=== PATIENT | female | born 1935 | race Caucasian/White ===

== ENCOUNTER 2020-08-01 23:53 | Emergency (ER) | payer MEDICARE, OTHER ==
[~2020-08-01] VITALS: Ht 157.5 cm; Wt 60.8 kg
--- NOTE | 2020-08-02 00:12 | NUR ---
PATIENT CAME TO ER BED 9 C/O LEFT LEG CRAMPING SINCE TODAY THAT HAS BEEN WORSENING. PATIENT CURRENTLY IS NOT IN ANY PAIN, NO CRAMPING. PER RA REPORT, PATIENT RECEIVED BANANAS AND PICKLED JUICE PRIOR TO ARRIVAL. PATIENT IS ON 2L OF N/C, DOES NOT KNOW WHY SHE ON 2L OF N/C. PAITENT IS AAOX4. C/O SOB. ON 2L OF NASAL CANNULA AT 98%. CONNECTED TO MONITOR.
[2020-08-02] MEDS ORDERED: DIAZEPAM 5 MG TABLET PO ONE (00:30)
[2020-08-02] MEDS ORDERED: IV NS 0.9% 500 ML BAG IV ONE ×2 (00:30→01:30)
[2020-08-02 00:50] LABS: BASOPHILS % (AUTO) 0.6 % (0.0-2.0); EOSINOPHILS % (AUTO) 4.8 % (0.0-6.0); HEMATOCRIT 32 % (33-45); HEMOGLOBIN 10.4 g/dL (11.5-14.8); LYMPHOCYTES # (AUTO) 0.6 /CMM (0.8-4.8); LYMPHOCYTES % (AUTO) 9.8 % (20.0-44.0); MEAN CORPUSCULAR HGB CONC 33 g/dl (31.0-36.0); MEAN CORPUSCULAR VOLUME 93 fL (82-100); MONOCYTES # (AUTO) 0.4 /CMM (0.1-1.30); MONOCYTES % (AUTO) 6.8 % (2.0-12.0); NEUTROPHILS # (AUTO) 4.8 /CMM (1.8-8.9); PLATELET COUNT (AUTO) 113 /CMM (150-450); RED BLOOD CELL COUNT(AUTO) 3.46 MIL/uL (4.0-5.2); WHITE BLOOD COUNT (AUTO) 6.1 K/uL (4.3-11.0)
[2020-08-02] MEDS ORDERED: DIAZEPAM 5 MG TABLET ONE (00:50)
[2020-08-02 00:58] LABS: CALCIUM, SERUM 8.6 mg/dL (8.5-10.1); CREATININE 0.8 mg/dL (0.6-1.3)
[2020-08-02 01:04] LABS: ALBUMIN 3.6 g/dL (3.4-5.0); BILIRUBIN,DIRECT 0.3 mg/dL (0.0-0.2); BILIRUBIN,TOTAL 0.9 mg/dL (0.2-1.0); TOTAL PROTEIN, SERUM 7.5 g/dL (6.4-8.2)
--- NOTE | 2020-08-02 01:55 | NUR ---
CALLED [facility] FOR TRANSPORTATION, NO AVAILABLE AMBULANCES AT THIS TIME
--- NOTE | 2020-08-02 01:57 | NUR ---
[facility] ETA 0700
[2020-08-02 02:39] LABS: APPEARANCE,URINE CLEAR (CLEAR); BILIRUBIN,URINE NEGATIVE (NEGATIVE); BLOOD, URINE TRACE-INTA Ery/uL (NEGATIVE); COLOR,URINE YELLOW (YELLOW); KETONES,URINE NEGATIVE (NEGATIVE); LEUKOCYTE ESTERASE ,URINE NEGATIVE (NEGATIVE); NITRITE, URINE NEGATIVE (NEGATIVE); PROTEIN,URINE 30 mg/dl (NEGATIVE); UGLUCOSE NEGATIVE (NEGATIVE); UROBILINOGEN,URINE 0.2 EU/dL (0.2)
[2020-08-02 04:00] LABS: BACTERIA,URINE Few /HPF (None Seen); RBC,URINE 0-2 /HPF (0-2); SQUAMOUS EPITHELIAL CELL,UR Few /HPF (None Seen); WBC,URINE 0-2 /HPF (0-3)
[2020-08-02] MEDS ORDERED: DOCUSATE SODIUM LIQ 100 MG/10 ML UDC ONE (07:38)
--- NOTE | 2020-08-02 07:50 | NUR ---
IV removed. Catheter intact and site benign. Pressure and 4x4 applied to site. No bleeding noted.
--- NOTE | 2020-08-02 07:53 | NUR ---
Patient discharged to home in stable condition. Written and verbal after care instructions given. Patient verbalizes understanding of instruction.
[2020-08-02 07:55] VITALS: BP 143/82
[2020-08-02] MEDS ORDERED: DOCUSATE SODIUM LIQ 100 MG/10 ML UDC NG ONE (08:00)
== END 2020-08-02 07:55 | disposition home or self-care (01) ==
LOC: ER 23:58
DX: R25.2 Cramp and spasm (principal); E86.0 Dehydration; I10 Essential (primary) hypertension; Z98.890 Other specified postprocedural states; Z85.038 Personal history of other malignant neoplasm of large intestine
CPT/HCPCS: 36415; 80048; 80076; 81001; 83735; 85025; 93005; 99284; J7030; J7040 ×2; 81000-TC

== ENCOUNTER 2020-11-16 17:14 | Inpatient (IN) | payer MEDICARE, OTHER ==
[~2020-11-16] VITALS: Ht 157.5 cm; Wt 60.8 kg
[2020-11-16 17:43] LABS: BASOPHILS % (AUTO) 0.4 % (0.0-2.0); EOSINOPHILS % (AUTO) 2.3 % (0.0-6.0); HEMATOCRIT 34 % (33-45); HEMOGLOBIN 10.5 g/dL (11.5-14.8); LYMPHOCYTES # (AUTO) 0.4 /CMM (0.8-4.8); MEAN CORPUSCULAR HGB CONC 31 g/dl (31.0-36.0); MEAN CORPUSCULAR VOLUME 98 fL (82-100); MONOCYTES # (AUTO) 0.3 /CMM (0.1-1.30); MONOCYTES % (AUTO) 7.5 % (2.0-12.0); NEUTROPHILS # (AUTO) 3.2 /CMM (1.8-8.9); NEUTROPHILS % (AUTO) 79.8 % (43.0-81.0); PLATELET COUNT (AUTO) 92 /CMM (150-450); RED BLOOD CELL COUNT(AUTO) 3.44 MIL/uL (4.0-5.2)
--- NOTE | 2020-11-16 17:47 | NUR ---
Patient bibra from home worsening shortness of breath x 2 days. On 15lpm via non rebreather mask. Connected to the monitor and pulse ox. kept comfortable, will continue to monitor accordingly.
--- NOTE | 2020-11-16 17:48 | NUR ---
IV access initiated and blood drawned and sent to lab. Covid 19 swab collected.
[2020-11-16] MEDS ORDERED: HYDR8TAB18 PO (17:56)
[2020-11-16] MEDS ORDERED: ONDA4TAB11 PO (17:56)
[2020-11-16] MEDS ORDERED: SPIR50TA5 PO (17:56)
[2020-11-16] MEDS ORDERED: NALO12.52 PO (17:56)
--- NOTE | 2020-11-16 18:03 | NUR ---
MOVE SHEET SUBMITTED
--- NOTE | 2020-11-16 18:18 | NUR ---
CALLED [facility].
[2020-11-16] MEDS ORDERED: LEVOFLOXACIN 750 MG /D5W 150ML 150 ML IV ONE ×2 (18:30→18:37)
[2020-11-16 18:40] LABS: CALCIUM, SERUM 8.3 mg/dL (8.5-10.1); CREATININE 0.8 mg/dL (0.6-1.3)
--- NOTE | 2020-11-16 18:48 | NUR ---
LAB CALLED PT COVID-19 NEGATIVE (-)
[2020-11-16 18:49] LABS: D-DIMER 9.07 mg/L(FEU (0.17-0.50)
[2020-11-16 18:53] LABS: ALBUMIN 3.1 g/dL (3.4-5.0); BILIRUBIN,DIRECT 0.4 mg/dL (0.0-0.2); BILIRUBIN,TOTAL 1.1 mg/dL (0.2-1.0); TOTAL PROTEIN, SERUM 7.2 g/dL (6.4-8.2)
[2020-11-16 19:01] LABS: BILIRUBIN,URINE SMALL (NEGATIVE); COLOR,URINE YELLOW (YELLOW); LEUKOCYTE ESTERASE ,URINE Negative (NEGATIVE); NITRITE, URINE Negative (NEGATIVE); PH,URINE 5.5 (5.0-8.0); PROTEIN,URINE 100 mg/dl (NEGATIVE); UGLUCOSE Negative (NEGATIVE)
[2020-11-16 19:25] LABS: BACTERIA,URINE Few /HPF (None Seen); SQUAMOUS EPITHELIAL CELL,UR Few /HPF (None Seen); WBC,URINE 0-2 /HPF (0-3)
[2020-11-16 19:38] LABS: LYMPHOCYTES % (MANUAL) 17 % (16-48); MONOCYTES % (MANUAL) 4 % (0-11.0); NEUTROPHILS % (MANUAL) 78 (42-76)
--- NOTE | 2020-11-16 20:02 | NUR ---
PT ASSIGNED TO
--- NOTE | 2020-11-16 20:49 | NUR ---
TELE 308-2
--- NOTE | 2020-11-16 21:08 | NUR ---
REPORT GIVEN TO HORTENSIA LINN FOR KRISTA
[2020-11-16] MEDS ORDERED: MAGNESIUM HYDROXIDE 30 ML UDC PO PRN (21:30)
[2020-11-16] MEDS ORDERED: ONDANSETRON HCL/PF 4 MG/2 ML VIAL IVP PRN (21:30)
[2020-11-16] MEDS ORDERED: HEPARIN SODIUM, PORCINE 5000 UNITS/1 ML VIAL SQ ONE (21:30)
[2020-11-16] MEDS ORDERED: Z GUARD REMEDY 2 OZ OINT TP PRN (21:30)
[2020-11-16] MEDS ORDERED: ACETAMINOPHEN 325 MG TABLET PO PRN (21:30)
[2020-11-16] MEDS ORDERED: ZOLPIDEM TARTRATE 5 MG TABLET PO PRN (21:30)
[2020-11-16 22:00] VITALS: BP 173/77
--- NOTE | 2020-11-16 22:35 | NUR ---
RN NOTES PT ARRIVED VIA GURNEY ALERT AND ORIENTED X4 NO SIGNS OF PAIN OR DISCOMFORT NOTED. NO RESPIRATORY DISTRESS. IV ACCESS ON THE RIGHT FOR ARM PATENT AND INTACT.ALL NURSING NEEDS MET. SAFETY PRECAUTIONS FOLLOWED. CALL LIGHT WITHIN REACH. WILL CONTINUE TO MONITOR.
--- NOTE | 2020-11-16 23:12 | NUR ---
RN NOTES PER MD Marilou padgett to give heparin. will continue to monitor.
[2020-11-17] VITALS: BP 165/76
[2020-11-17] MEDS ORDERED: FUROSEMIDE 40 MG/4 ML VIAL IV SCH
--- NOTE | 2020-11-17 06:56 | NUR ---
RN NOTES ALERT AND ORIENTED X4 NO SIGNS OF PAIN OR DISCOMFORT NOTED. NO RESPIRATORY DISTRESS. IV ACCESS ON THE RIGHT FOR ARM PATENT AND INTACT.ALL NURSING NEEDS MET. ALL DUE MEDS GIVEN AND TOLERATED WELL. PT ON A NRB MASK AT 15 L O2 SATURATION 95% TOLERATING WELL.SAFETY PRECAUTIONS FOLLOWED. CALL LIGHT WITHIN REACH. WILL ENDORSE CARE TO DAY SHIFT NURSE.
--- NOTE | 2020-11-17 07:30 | NUR ---
PATIENT RECEIVED RESTING COMFORTABLY IN BED. NO S/S OR C/O PAIN OR DISTRESS NOTED. SIDE RAILS UP X2, CALL LIGHT LEFT WITHIN REACH,. WILL CONTINUE PLAN OF CARE.
[2020-11-17 07:37] LABS: BASOPHILS % (AUTO) 0.7 % (0.0-2.0); EOSINOPHILS % (AUTO) 4.3 % (0.0-6.0); HEMATOCRIT 30 % (33-45); HEMOGLOBIN 9.8 g/dL (11.5-14.8); LYMPHOCYTES # (AUTO) 0.4 /CMM (0.8-4.8); LYMPHOCYTES % (AUTO) 10.1 % (20.0-44.0); MEAN CORPUSCULAR HGB CONC 32 g/dl (31.0-36.0); MEAN CORPUSCULAR VOLUME 95 fL (82-100); MONOCYTES # (AUTO) 0.4 /CMM (0.1-1.30); MONOCYTES % (AUTO) 10.7 % (2.0-12.0); NEUTROPHILS # (AUTO) 2.7 /CMM (1.8-8.9); NEUTROPHILS % (AUTO) 74.2 % (43.0-81.0); PLATELET COUNT (AUTO) 82 /CMM (150-450); RED BLOOD CELL COUNT(AUTO) 3.18 MIL/uL (4.0-5.2); WHITE BLOOD COUNT (AUTO) 3.6 K/uL (4.3-11.0)
[2020-11-17 08:00] VITALS: BP 128/71
[2020-11-17 08:51] LABS: CALCIUM, SERUM 8.2 mg/dL (8.5-10.1); CREATININE 0.7 mg/dL (0.6-1.3); MAGNESIUM 2.2 mg/dL (1.8-2.4); PHOSPHORUS 3.2 mg/dL (2.5-4.9); POTASSIUM 5.3 mmol/L (3.5-5.1)
[2020-11-17] MEDS ORDERED: IOHEXOL-350 100 ML VIAL IV ONE (09:17)
[2020-11-17] MEDS ORDERED: IPRATROPIUM NEB FS 0.5 MG/2.5 ML AMPUL.NEB NEB SCH (11:30)
[2020-11-17] MEDS ORDERED: ALBUTEROL HALF STRENGTH 1.25 MG/3 ML VIAL.NEB NEB SCH (11:30)
[2020-11-17 13:12] LABS: BAND % (MANUAL) 1 % (0.0-5.0); EOSINOPHILS % (MANUAL) 3 % (0-4); LYMPHOCYTES % (MANUAL) 12 % (16-48); MONOCYTES % (MANUAL) 8 % (0-11.0); NEUTROPHILS % (MANUAL) 76 (42-76)
[2020-11-17] MEDS: FUROSEMIDE 40 MG/4 ML VIAL IV SCH ×2 (13:26→17:11)
[2020-11-17] MEDS: HYDROMORPHONE HCL 2 MG TABLET PO PRN ×2 (13:34→23:27)
[2020-11-17 16:00] VITALS: BP 139/87
[2020-11-17] MEDS: methylPREDNISolone SOD SUCC 125 MG/2ML VIAL IV SCH (17:11)
--- NOTE | 2020-11-17 19:02 | NUR ---
CHANGE OF SHIFT REPORT PT RESTING COMFORTABLY IN BED. NO S/S OR C/O PAIN OR DISTRESS NOTED. SIDE RAILS UP X2, CALL LIGHT LEFT WITHIN REACH. PT KEPT CLEAN, DRY, AND COMFORTABLE. NO SIGNIFICANT CHANGES SINCE PREVIOUS SHIFT. WILL GIVE REPORT TO NOLAN BAZAN.
--- NOTE | 2020-11-17 19:30 | NUR ---
CASE FINISHER OPENING NOTE RECEIVED PATIENT IN BED. A/OX3. HARD OF HEARING. ON OXYGEN 15L/MIN VIA NONREBREATHER. RESPIRATIONS ARE EVEN AND UNLABORED. NO S/S SOB AT REST. NO S/S PAIN AT THIS TIME. EXTERNAL TELE MONITOR READ CONTROLLED AFIB HR 63. IN NO APPARENT DISTRESS. IV ACCESS IN RFA #20 PATENT AND SALINE LOCKED. BED IS LOW AND LOCKED, HOB ELEVATED IN HIGH FOWLERS, SIDE RIALS UP X3. CALL LIGHT WITHIN REACH. WILL CONTINUE TO MONITOR THROUGHOUT SHIFT.
[2020-11-17 20:00] VITALS: BP 150/78
[2020-11-17] MEDS: ENOXAPARIN SODIUM 60 MG/0.6 ML DISP.SYRIN SQ SCH (23:01)
--- NOTE | 2020-11-17 23:02 | NUR ---
SEWAGE RETICULATION DRAFTING OFFICER NOTE CALLED RAMP LEAD MD DR. MOBLEY. INFORMED PATIENT HAS ASCHEDULED LOVENOX 60MG BUT PATIENT PLT IS 82 AND DROPPED FROM YESTERDAY, PLT 92. PATIENT POSITIVE DVT IN LEFT FEMORAL VEIN. MD TELEPHONE ORDER OK TO GIVE LOVENOX 60MG.
--- NOTE | 2020-11-17 23:15 | NUR ---
ACCOUNTS PAYABLE SPECIALIST NOTE PROVIDED PATIENT EDUCATION ABOUT DVT AND LOVENOX MEDICATION. INFORMED PATIENT NOT TO GET UP BECAUSE IT CAN CAUSE STROKE. INFORMED ON USE OF CALL LIGHT. CALL LIGHT WITHIN REACH.
--- NOTE | 2020-11-17 23:27 | NUR ---
CONTINUOUS IMPROVEMENT BLACK BELT NOTE ADMINISTERED PRN DILAUDID 8MG FOR 8/10 PAIN IN ABDOMEN.
[2020-11-18] VITALS: BP 131/95
[2020-11-18 00:14] VITALS: BP 131/95
[2020-11-18 04:00] VITALS: BP 136/65
--- NOTE | 2020-11-18 07:30 | NUR ---
TELE/RN OPENING NOTE Received patient resting in bed, A&O x 3, [place], easily arousable to tactile and verbal stimulation. No complaints of pain/discomfort at this time. Breathing even and non-labored on 8L face mask, no SOB noted. No cardiac distress noted On tele monitor, reading Afib 68. IV access noted on R FA #18g, patent and intact, and flushing well. Bed locked to its lowest position, call light in hand. Will continue with current medical management.
[2020-11-18 08:00] VITALS: BP 130/60
[2020-11-18 08:02] LABS: BASOPHILS % (AUTO) 0.1 % (0.0-2.0); HEMATOCRIT 30 % (33-45); HEMOGLOBIN 9.9 g/dL (11.5-14.8); LYMPHOCYTES # (AUTO) 0.2 /CMM (0.8-4.8); LYMPHOCYTES % (AUTO) 4.8 % (20.0-44.0); MEAN CORPUSCULAR HGB CONC 33 g/dl (31.0-36.0); MEAN CORPUSCULAR VOLUME 94 fL (82-100); MONOCYTES # (AUTO) 0.2 /CMM (0.1-1.30); NEUTROPHILS # (AUTO) 4.4 /CMM (1.8-8.9); NEUTROPHILS % (AUTO) 90.1 % (43.0-81.0); PLATELET COUNT (AUTO) 88 /CMM (150-450); RED BLOOD CELL COUNT(AUTO) 3.24 MIL/uL (4.0-5.2); WHITE BLOOD COUNT (AUTO) 4.9 K/uL (4.3-11.0)
--- NOTE | 2020-11-18 08:05 | NUR ---
KEYMODULE ASSEMBLY SUPERVISOR CLOSING NOTE PATIENT RESTING IN BED. A/OX3. TITRATED OXYGEN TO 8L/MIN VIA SIMPLE MASK. RESPIRATIONS ARE EVEN AND UNLABORED. NO S/S SOB AT REST. O2 SAT 98%. MANAGED PAIN WITH 8MG DILAUDID .TELE MONITOR READ CONTROLLED AFIB. NO DISTRESS. IV ACCESS MAINTAINED IN RFA #20. BED REMAINS LOW AND LOCKED, HOB ELEVATED IN HIGH FOWLERS, SIDE RIALS UP X3. CALL LIGHT WITHIN REACH. WILL ENDORSE TO NEXT SHIFT.
[2020-11-18 08:17] LABS: CALCIUM, SERUM 8.3 mg/dL (8.5-10.1); CREATININE 0.8 mg/dL (0.6-1.3); PHOSPHORUS 4.3 mg/dL (2.5-4.9); POTASSIUM 5.2 mmol/L (3.5-5.1)
[2020-11-18] MEDS: methylPREDNISolone SOD SUCC 125 MG/2ML VIAL IV SCH (08:33)
[2020-11-18] MEDS: FUROSEMIDE 40 MG/4 ML VIAL IV SCH (08:33)
[2020-11-18] MEDS: ENOXAPARIN SODIUM 60 MG/0.6 ML DISP.SYRIN SQ SCH (08:36)
--- NOTE | 2020-11-18 09:15 | NUR ---
TELE/RN NOTE Dr. Walsh at bedside, orders strict I&O for patient. Orders carried out.
[2020-11-18] MEDS: HYDROMORPHONE HCL 2 MG TABLET PO PRN (09:21)
--- NOTE | 2020-11-18 09:30 | NUR ---
TELE/RN NOTE Dr. Vitale at bedside, orders CT Head without contrast. Orders carried out.
--- NOTE | 2020-11-18 10:00 | NUR ---
TELE/RN NOTE Patient refusing to have CT Head without contrast. Per patient, "I do not want to have any xrays or CT scans anymore. I want to talk to the doctor first." Notified Dr. Vitale.
--- NOTE | 2020-11-18 15:00 | NUR ---
TELE/RN NOTE Patient's family relative, Meche, comes by (allowed by nursing distribution operation supervisor and Klaudia BOWEN) to try to explain the importance of test/treatment compliance to patient, but patient is insisting on leaving AMA. Klaudia BOWEN, me, and Meche have reiterated the consequences of leaving the hospital. But she states "I do not think I need the CTs, Xrays, and all the lab work, it's not pertinent to my condition. I don't get why I am still here. I just want to leave." Klaudia BOWEN will talk to patient's oncology MD, Dr. Torres, regarding patient's condition and concerns about leaving AMA.
[2020-11-18] MEDS ORDERED: APIX2.5T PO (15:08)
--- NOTE | 2020-11-18 16:00 | NUR ---
TELE/RN NOTE Patient signed AMA paper and placed on chart, educated patient regarding the risks and benefits of leaving the hospital. Klaudia BOWEN then ordered all discharge prescriptions, educated Meche and patient regarding new prescription, reminded them to supervisor opening and picking in pharmacy. Educated patient to follow up with oncology MD ANABELLE and to continue taking home medications as ordered. Patient remains A&O x 4, [place]. On 6 L oxygen via NC, saturating at 88-95%. Slight SOB noted upon movement and ambulation. Denies any pain/discomfort at this time. No cardiac distress noted. IV access removed on RFA #18g with catheter intact, placed clean dry dressing and applied pressure. No s/s of bleeding, infection, or infiltration noted on site. Removed tele leads on chest, skin remains intact. Photos of skin impairments refused by patient. Patient left safely along with Meche with all hospital documents and belongings in hand.
== END 2020-11-18 16:30 | disposition left against medical advice (07) | DRG 292 ==
LOC: ER 17:18 → TELE2 20:06 → TELE 20:15
PROVIDERS: ADMIT Nurse Practitioner Acute Care; ATTEND Nurse Practitioner Acute Care
DX: I11.0 Hypertensive heart disease with heart failure (principal); E44.1 Mild protein-calorie malnutrition; J90 Pleural effusion, not elsewhere classified; D61.818 Other pancytopenia; D68.59 Other primary thrombophilia; I82.412 Acute embolism and thrombosis of left femoral vein; J44.9 Chronic obstructive pulmonary disease, unspecified; Z88.0 Allergy status to penicillin; Z79.899 Other long term (current) drug therapy; I27.20 Pulmonary hypertension, unspecified; R09.02 Hypoxemia; I50.43 Acute on chronic combined systolic (congestive) and diastolic (congestive) heart failure; I35.0 Nonrheumatic aortic (valve) stenosis; Z87.891 Personal history of nicotine dependence; Z99.81 Dependence on supplemental oxygen
CPT/HCPCS: 36415; 71045-TC; 76604-TC; 80048-TC; 80061-TC; 80076-TC; 81001; 82962-TC; 83605-TC; 83735-TC; 83880; 84100-TC; 84155-TC; 84484-TC; 85025-TC; 85378-TC; 85730-TC; 87040-TC; 87070-TC; 87075-TC; 87081-TC; 87086-TC; 87102-TC; 89051-TC; 93307-TC; C9803; G0378; J1644; J1650; J1940; J1956; J2930; Q9967